=== PATIENT | male | born 1960 | race Caucasian/White ===

== ENCOUNTER 2018-08-14 04:39 | Inpatient (IN) | payer MEDICAID ==
[~2018-08-14] VITALS: Ht 188 cm; Wt 120.0 kg
[2018-08-14] MEDS ORDERED: morphine 4 MG/ML inj SYRINge IV ONE (04:50)
[2018-08-14] MEDS ORDERED: ondansetron/PF 4mg/2ml inj IV ONE (04:50)
[2018-08-14] MEDS ORDERED: ondansetron/PF 4mg/2ml inj IV PRN (05:50)
[2018-08-14] MEDS ORDERED: ASPI-1265 PO (06:03)
[2018-08-14] MEDS ORDERED: TICA60TA (06:03)
[2018-08-14] MEDS ORDERED: METO1TAB11 PO (06:03)
[2018-08-14] MEDS ORDERED: ATOR10TA PO (06:03)
[2018-08-14] MEDS: normal saline 1000ml 1,000 ML IV SCH ×2 (06:10→17:28)
[2018-08-14] MEDS: atorvastatin 10mg tablet PO SCH (08:00)
[2018-08-14] MEDS: morphine 4 MG/ML inj SYRINge IV PRN ×6 (08:22→22:37)
[2018-08-14 08:38] LABS: BASOPHILS % (AUTO) 0.4 % (0-1); EOSINOPHILS % (AUTO) 0.5 % (0-6); HEMATOCRIT 39.2 % (42.0-52.0); HEMOGLOBIN 13.1 g/dl (14.0-17.9); LYMPHOCYTES # (AUTO) 1.6 X10'3 (1.1-4.8); LYMPHOCYTES % (AUTO) 14.8 % (21-51); MEAN CORPUSCULAR HEMOGLOBIN 28.4 PG (27.0-31.0); MEAN CORPUSCULAR HGB CONC 33.4 g/dL (33.0-36.5); MEAN CORPUSCULAR VOLUME 85.2 FL (78-98); MEAN PLATELET VOLUME 8.6 FL (7.4-10.4); MONOCYTES # (AUTO) 0.8 X10'3 (0-0.9); MONOCYTES % (AUTO) 7.2 % (2-12); NEUTROPHILS # (AUTO) 8.4 X10'3 (1.8-7.7); NEUTROPHILS % (AUTO) 77.1 % (42-75); PLATELET COUNT 171 X10'3 (140-440); RED CELL DISTRIBUTION WIDTH 13.3 % (11.5-14.5); WHITE BLOOD COUNT 10.9 X10'3 (4.5-11.0)
[2018-08-14 08:45] LABS: PARTIAL THROMBOPLASTIN TIME 26 SECONDS (22-32); PROTHROMBIN TIME 10.4 SECONDS (9.0-12.0)
[2018-08-14 08:54] LABS: ALANINE AMINOTRANSFERASE 30 U/L (12-78); ALBUMIN 3.5 G/DL (3.4-5.0); ALBUMIN/GLOBULIN RATIO 1.2 (1.1-1.5); ALKALINE PHOSPHATASE 72 IU/L (46-116); ANION GAP 10 (8-16); ASPARTATE AMINO TRANSFERASE 22 U/L (10-37); BILIRUBIN,TOTAL 1.4 MG/DL (0.1-1.0); BLOOD UREA NITROGEN 11 MG/DL (7-18); BUN/CREATININE RATIO 17.5 (5.4-32.0); CALCIUM 8.1 MG/DL (8.5-10.1); CHLORIDE 107 MMOL/L (99-107); CREATININE 0.63 MG/DL (0.60-1.10); GLUCOSE 121 MG/DL (70-104); SODIUM 140 MMOL/L (135-145); TOTAL PROTEIN 6.5 G/DL (6.4-8.2); eGFR > 90 ML/MIN
--- NOTE | 2018-08-14 09:15 | NUR ---
Patient in room ORTHO 4018. I have received report from ROBER CEJA and had the opportunity to ask questions and assume patient care.
[2018-08-14 09:30] VITALS: BP 143/75
[2018-08-14] MEDS: aspirin 81mg tab.chew PO SCH (09:30)
[2018-08-14] MEDS: metoprolol succinate 25mg (24-HOUR) SR. Tablet PO SCH (09:54)
--- NOTE | 2018-08-14 11:24 | NUR ---
SHRAVAN [id number] RE: SILVIA [facility] DR COBSY SAID NPO AFTER MIDNIGHT POSSIBLE SURGERY TOMORROW.
[2018-08-14] MEDS: HYDROcodone/acetaminophen 10/325mg tab PO PRN (17:28)
[2018-08-14 18:00] VITALS: BP 133/84
--- NOTE | 2018-08-14 18:10 | NUR ---
Problems reprioritized. Patient report given, questions answered & plan of care reviewed with SUMEET CEJA.
--- NOTE | 2018-08-14 18:15 | NUR ---
Patient in room ORTHO 4018. I have received report from MARCIAL Moreau and had the opportunity to ask questions and assume patient care.
[2018-08-14] MEDS: docusate sod 100mg capsule PO SCH (19:31)
[2018-08-14 22:00] VITALS: BP 145/87
[2018-08-15] VITALS (18 sets, daily range): BP systolic 127–164; BP diastolic 76–96
[2018-08-15] MEDS: morphine 4 MG/ML inj SYRINge IV PRN ×5 (01:58→11:11)
[2018-08-15 06:15] LABS: BASOPHILS % (AUTO) 0.3 % (0-1); EOSINOPHILS # (AUTO) 0.3 X10'3 (0-0.9); EOSINOPHILS % (AUTO) 3.7 % (0-6); HEMATOCRIT 37.3 % (42.0-52.0); HEMOGLOBIN 12.8 g/dl (14.0-17.9); LYMPHOCYTES # (AUTO) 1.7 X10'3 (1.1-4.8); LYMPHOCYTES % (AUTO) 19.6 % (21-51); MEAN CORPUSCULAR HEMOGLOBIN 29.2 PG (27.0-31.0); MEAN CORPUSCULAR HGB CONC 34.2 g/dL (33.0-36.5); MEAN CORPUSCULAR VOLUME 85.4 FL (78-98); MEAN PLATELET VOLUME 8.9 FL (7.4-10.4); MONOCYTES # (AUTO) 0.8 X10'3 (0-0.9); MONOCYTES % (AUTO) 8.9 % (2-12); NEUTROPHILS # (AUTO) 5.8 X10'3 (1.8-7.7); NEUTROPHILS % (AUTO) 67.5 % (42-75); PLATELET COUNT 144 X10'3 (140-440); RED BLOOD COUNT 4.37 X10'6 (4.70-6.10); RED CELL DISTRIBUTION WIDTH 13.4 % (11.5-14.5); WHITE BLOOD COUNT 8.5 X10'3 (4.5-11.0)
--- NOTE | 2018-08-15 06:31 | NUR ---
Problems reprioritized. Patient report given, questions answered & plan of care reviewed with Malina.
[2018-08-15 06:48] LABS: ALANINE AMINOTRANSFERASE 24 U/L (12-78); ALBUMIN 3.2 G/DL (3.4-5.0); ALKALINE PHOSPHATASE 68 IU/L (46-116); ANION GAP 9 (8-16); ASPARTATE AMINO TRANSFERASE 18 U/L (10-37); BLOOD UREA NITROGEN 12 MG/DL (7-18); BUN/CREATININE RATIO 16.9 (5.4-32.0); CALCIUM 8.1 MG/DL (8.5-10.1); CHLORIDE 108 MMOL/L (99-107); CREATININE 0.71 MG/DL (0.60-1.10); GLUCOSE 151 MG/DL (70-104); POTASSIUM 3.6 MMOL/L (3.5-5.1); SODIUM 141 MMOL/L (135-145); TOTAL CARBON DIOXIDE 24.5 MMOL/L (24-32); TOTAL PROTEIN 6.3 G/DL (6.4-8.2); eGFR > 90 ML/MIN
[2018-08-15] MEDS: normal saline 1000ml 1,000 ML IV SCH ×2 (06:56→20:27)
[2018-08-15] MEDS: metoprolol succinate 25mg (24-HOUR) SR. Tablet PO SCH (08:00)
[2018-08-15] MEDS: atorvastatin 10mg tablet PO SCH (08:00)
[2018-08-15] MEDS: aspirin 81mg tab.chew PO SCH (08:00)
[2018-08-15] MEDS: docusate sod 100mg capsule PO SCH ×2 (08:00→20:26)
[2018-08-15] MEDS: ceFAZolin 1GM/D5W- ADD-VANTAGE 50 ML IV SCH ×3 (08:20→23:57)
--- NOTE | 2018-08-15 09:44 | NUR ---
Dr. Simons in to see patient.
--- NOTE | 2018-08-15 11:52 | NUR ---
Dr. Roberto in to see patient, patient picked up to go to OR.
[2018-08-15] MEDS ORDERED: tetracaine 1% (10mg/ml) pres. free inj. ONE (12:03)
--- NOTE | 2018-08-15 12:05 | NUR ---
Page to Dr. Simons MESSAGE: [id number] Art[address] Palumbo for post op. 24hrs, pt had a [facility], with stent placement 3 months ago Malina [id number]
[2018-08-15] MEDS ORDERED: MIDAZolam 5mg/5ml vial ONE (12:07)
[2018-08-15] MEDS ORDERED: morphine /PF 1mg/ml 10ml inj. ONE (12:07)
[2018-08-15] MEDS ORDERED: fentaNYL/PF 50MCG/1 ML 2ML syringe ONE (12:07)
[2018-08-15] MEDS ORDERED: ceFAZolin 1000mg inj ONE ×2 (12:31)
[2018-08-15] MEDS ORDERED: ringers solution, lacted 1,000 ML IV SCH (12:58)
[2018-08-15] MEDS ORDERED: naloxone 2mg/2ml inj 2 MG in normal saline 500ml IV soln 500 ML IV PRN (12:59)
[2018-08-15] MEDS ORDERED: meperidine/PF 25mg/ml syringe IV PRN ×3 (13:00)
[2018-08-15] MEDS ORDERED: diphenhydrAMINE 50 mg/ml inj IV PRN (13:00)
[2018-08-15] MEDS ORDERED: ondansetron/PF 4mg/2ml inj IV PRN ×2 (13:00)
[2018-08-15] MEDS ORDERED: morphine 4 MG/ML inj SYRINge IV PRN ×2 (13:00)
[2018-08-15] MEDS ORDERED: proCHLORperazine 10 MG/2 ml inj IV PRN (13:00)
--- NOTE | 2018-08-15 13:22 | NUR ---
Received from OR via ORTHO BED WITH [facility] , accompanied by Anesthesiologist FRANSISCA and report given by Anesthesiolgist. PATIENT WITH RIGHT LE IN ANAM BANDAGE FROM LOW THIGH TO TOE BOX.+ DORSALIS PEDIS PRESENT. 22G PIV IN LEFT UE RUNNING LR AT 100. DENIES PAIN. SENSATION AT XYPOHID AT THIS TIME FROM SPINAL ANESTHESIA AND NARCOTICS. VSS AT THIS TIME. Addendum: 08/15/18 at 1349 by Doroteo Anne RN, RN Amended: Links added.
[2018-08-15] MEDS ORDERED: bisacodyl 10mg suppository rectal RC PRN (13:25)
[2018-08-15] MEDS ORDERED: diphenhydrAMINE 25mg capsule PO PRN ×2 (13:25)
[2018-08-15] MEDS ORDERED: acetaminophen 325mg tablet PO PRN (13:25)
[2018-08-15] MEDS ORDERED: magnesium hydroxide 30ml (MOM) UD suspension PO PRN (13:25)
--- NOTE | 2018-08-15 14:00 | NUR ---
Received report from Doroteo CEJA, VSS, BED Low, patient sensation at Xiphoid.
--- NOTE | 2018-08-15 14:11 | NUR ---
ALL CRITERIA FOR TRANSFER TO THE FLOOR HAS BEEN ACHIEVED. VSS. BED LOW, CALL LIGHT AND VS. SET IN PLACE. RN PRESENT TO ACCEPT CARE. PATIENT RESTING COMFORTABLY IN BED. BELONGINGS SENT WITH PATIENT. DRESSINGS CDI. REPORT GIVEN TO LORI CEJA, JOSEFINA. SPINAL LEVEL STILL AT T5 SENSATION LEVEL, MARCIAL SANDOVAL AWARE OF THIS. Addendum: 08/15/18 at 1419 by Doroteo Anne RN, RN Amended: Links added.
--- NOTE | 2018-08-15 16:11 | NUR ---
Patient sensation at waist. easy to arouse.
--- NOTE | 2018-08-15 18:37 | NUR ---
Problems reprioritized. Patient report given, questions answered & plan of care reviewed with Kaya Hart
--- NOTE | 2018-08-15 18:44 | NUR ---
PATIENT REPORT RECEIVED FROM LORI CEJA.
[2018-08-15] MEDS: lactobacillus rhamnosus 10,000 MMU CELLS/CAPSULE PO SCH (20:25)
[2018-08-15] MEDS: sennosides 8.6mg tablet PO SCH (20:26)
[2018-08-16 02:00] VITALS: BP 164/93
[2018-08-16] MEDS: HYDROcodone/acetaminophen 10/325mg tab PO PRN ×4 (04:52→20:50)
[2018-08-16] MEDS: normal saline 1000ml 1,000 ML IV SCH (05:36)
--- NOTE | 2018-08-16 06:20 | NUR ---
PATIENT REPORT GIVEN TO LORI CEJA.
[2018-08-16 06:35] VITALS: BP 165/90
[2018-08-16 06:39] LABS: BASOPHILS % (AUTO) 0.4 % (0-1); EOSINOPHILS # (AUTO) 0.3 X10'3 (0-0.9); EOSINOPHILS % (AUTO) 3.6 % (0-6); HEMATOCRIT 33.2 % (42.0-52.0); HEMOGLOBIN 11.4 g/dl (14.0-17.9); LYMPHOCYTES # (AUTO) 1.8 X10'3 (1.1-4.8); LYMPHOCYTES % (AUTO) 20.2 % (21-51); MEAN CORPUSCULAR HEMOGLOBIN 29.1 PG (27.0-31.0); MEAN CORPUSCULAR HGB CONC 34.4 g/dL (33.0-36.5); MEAN CORPUSCULAR VOLUME 84.8 FL (78-98); MEAN PLATELET VOLUME 8.6 FL (7.4-10.4); MONOCYTES # (AUTO) 1.2 X10'3 (0-0.9); MONOCYTES % (AUTO) 12.8 % (2-12); NEUTROPHILS # (AUTO) 5.8 X10'3 (1.8-7.7); PLATELET COUNT 137 X10'3 (140-440); RED BLOOD COUNT 3.91 X10'6 (4.70-6.10); RED CELL DISTRIBUTION WIDTH 13.8 % (11.5-14.5); WHITE BLOOD COUNT 9.2 X10'3 (4.5-11.0)
[2018-08-16 06:53] LABS: ALANINE AMINOTRANSFERASE 17 U/L (12-78); ALBUMIN 2.9 G/DL (3.4-5.0); ALBUMIN/GLOBULIN RATIO 0.9 (1.1-1.5); ALKALINE PHOSPHATASE 62 IU/L (46-116); ANION GAP 8 (8-16); ASPARTATE AMINO TRANSFERASE 16 U/L (10-37); BILIRUBIN,TOTAL 1.3 MG/DL (0.1-1.0); BLOOD UREA NITROGEN 11 MG/DL (7-18); CHLORIDE 104 MMOL/L (99-107); GLUCOSE 105 MG/DL (70-104); POTASSIUM 3.4 MMOL/L (3.5-5.1); SODIUM 139 MMOL/L (135-145); eGFR > 90 ML/MIN
[2018-08-16] MEDS: ceFAZolin 1GM/D5W- ADD-VANTAGE 50 ML IV SCH ×2 (07:38→16:10)
[2018-08-16] MEDS: enoxaparin 40mg/0.4ml syringe SQ SCH (07:43)
[2018-08-16] MEDS: aspirin 81mg tab.chew PO SCH (07:43)
[2018-08-16] MEDS: atorvastatin 10mg tablet PO SCH (07:48)
[2018-08-16] MEDS: docusate sod 100mg capsule PO SCH ×2 (07:48→20:49)
[2018-08-16] MEDS: lactobacillus rhamnosus 10,000 MMU CELLS/CAPSULE PO SCH ×2 (07:48→20:49)
[2018-08-16] MEDS: metoprolol succinate 25mg (24-HOUR) SR. Tablet PO SCH (07:52)
[2018-08-16 10:00] VITALS: BP 135/94
--- NOTE | 2018-08-16 10:42 | NUR ---
DR. MANTILLA INTO SEE PATIENT
[2018-08-16 11:18] VITALS: BP 135/94
[2018-08-16 18:00] VITALS: BP 134/73
--- NOTE | 2018-08-16 18:15 | NUR ---
Report received from Malina CEJA, assumed care of patient.
--- NOTE | 2018-08-16 18:22 | NUR ---
Problems reprioritized. Patient report given, questions answered & plan of care reviewed with Delaney CEJA.
[2018-08-16] MEDS: sennosides 8.6mg tablet PO SCH (20:50)
[2018-08-16 22:00] VITALS: BP 139/68
[2018-08-17] MEDS: HYDROcodone/acetaminophen 10/325mg tab PO PRN ×5 (01:00→23:05)
[2018-08-17 05:00] VITALS: BP 128/78
[2018-08-17 06:10] LABS: BASOPHILS % (AUTO) 0.5 % (0-1); EOSINOPHILS # (AUTO) 0.3 X10'3 (0-0.9); EOSINOPHILS % (AUTO) 4.1 % (0-6); HEMATOCRIT 32.5 % (42.0-52.0); HEMOGLOBIN 11.1 g/dl (14.0-17.9); LYMPHOCYTES # (AUTO) 1.9 X10'3 (1.1-4.8); LYMPHOCYTES % (AUTO) 27.1 % (21-51); MEAN CORPUSCULAR HGB CONC 34.2 g/dL (33.0-36.5); MEAN CORPUSCULAR VOLUME 84.8 FL (78-98); MEAN PLATELET VOLUME 8.8 FL (7.4-10.4); MONOCYTES # (AUTO) 0.8 X10'3 (0-0.9); MONOCYTES % (AUTO) 11.9 % (2-12); NEUTROPHILS % (AUTO) 56.4 % (42-75); PLATELET COUNT 133 X10'3 (140-440); RED BLOOD COUNT 3.83 X10'6 (4.70-6.10); RED CELL DISTRIBUTION WIDTH 12.9 % (11.5-14.5); WHITE BLOOD COUNT 7.1 X10'3 (4.5-11.0)
[2018-08-17 06:19] LABS: ALANINE AMINOTRANSFERASE 18 U/L (12-78); ALBUMIN 2.8 G/DL (3.4-5.0); ALBUMIN/GLOBULIN RATIO 0.8 (1.1-1.5); ALKALINE PHOSPHATASE 57 IU/L (46-116); ANION GAP 6 (8-16); ASPARTATE AMINO TRANSFERASE 21 U/L (10-37); BILIRUBIN,TOTAL 0.8 MG/DL (0.1-1.0); BLOOD UREA NITROGEN 11 MG/DL (7-18); BUN/CREATININE RATIO 19.3 (5.4-32.0); CALCIUM 8.2 MG/DL (8.5-10.1); CHLORIDE 108 MMOL/L (99-107); CREATININE 0.57 MG/DL (0.60-1.10); GLUCOSE 106 MG/DL (70-104); POTASSIUM 3.4 MMOL/L (3.5-5.1); SODIUM 144 MMOL/L (135-145); TOTAL PROTEIN 6.1 G/DL (6.4-8.2); eGFR > 90 ML/MIN
--- NOTE | 2018-08-17 06:28 | NUR ---
Report given to Malina CEJA.
[2018-08-17 08:00] VITALS: BP 138/78
[2018-08-17] MEDS: lactobacillus rhamnosus 10,000 MMU CELLS/CAPSULE PO SCH ×2 (08:00→19:30)
[2018-08-17] MEDS: aspirin 81mg tab.chew PO SCH (08:19)
[2018-08-17] MEDS: docusate sod 100mg capsule PO SCH ×2 (08:19→19:30)
[2018-08-17] MEDS: atorvastatin 10mg tablet PO SCH (08:19)
[2018-08-17] MEDS: metoprolol succinate 25mg (24-HOUR) SR. Tablet PO SCH (08:19)
[2018-08-17] MEDS: enoxaparin 40mg/0.4ml syringe SQ SCH (08:35)
[2018-08-17 10:00] VITALS: BP 127/69
--- NOTE | 2018-08-17 12:40 | NUR ---
RN verbal consult RE: Pt food preferences since vegan on vegetarian diet. PT seen by CAROLYN and agrees to haroldo duenas w/ lunch, oatmealx2 w/ breakfasts, no dairy, fruit cup TIDWM, and side salad w/ american dressings BIDLD. CAROLYN d/w dietary for preferences. Addendum: 08/17/18 at [address] Amended: Links added.
[2018-08-17] MEDS ORDERED: magnesium Cl slow-release 64mg tablet PO PRN (14:20)
[2018-08-17] MEDS ORDERED: potassium Cl 20 mEq SR tablet PO PRN (14:20)
[2018-08-17] MEDS ORDERED: magnesium 4gm in 100ml NS 100 ML IV PRN (14:20)
[2018-08-17] MEDS ORDERED: potassium Cl 40MEQ/NS 500ml 500 ML IV PRN ×2 (14:20)
[2018-08-17] MEDS: pantoprazole 40mg Tablet.DR PO SCH (16:08)
--- NOTE | 2018-08-17 16:51 | NUR ---
Patient requested second pain pill.
[2018-08-17 18:00] VITALS: BP 128/87
--- NOTE | 2018-08-17 18:06 | NUR ---
Report to Delaney Matthews RN
[2018-08-17] MEDS: sennosides 8.6mg tablet PO SCH (19:30)
[2018-08-17 22:00] VITALS: BP 110/69
[2018-08-18] MEDS: potassium Cl 20 mEq SR tablet PO PRN ×2 (00:22→05:04)
[2018-08-18] MEDS: HYDROcodone/acetaminophen 10/325mg tab PO PRN ×6 (04:14→23:08)
[2018-08-18 06:00] VITALS: BP 125/68
[2018-08-18 06:28] LABS: ALANINE AMINOTRANSFERASE 21 U/L (12-78); ALBUMIN/GLOBULIN RATIO 0.9 (1.1-1.5); ALKALINE PHOSPHATASE 57 IU/L (46-116); ANION GAP 9 (8-16); ASPARTATE AMINO TRANSFERASE 22 U/L (10-37); BLOOD UREA NITROGEN 10 MG/DL (7-18); BUN/CREATININE RATIO 15.4 (5.4-32.0); CALCIUM 8.5 MG/DL (8.5-10.1); CHLORIDE 107 MMOL/L (99-107); CREATININE 0.65 MG/DL (0.60-1.10); GLUCOSE 100 MG/DL (70-104); MAGNESIUM 1.7 MG/DL (1.5-2.4); POTASSIUM 3.8 MMOL/L (3.5-5.1); SODIUM 144 MMOL/L (135-145); TOTAL CARBON DIOXIDE 28.4 MMOL/L (24-32); TOTAL PROTEIN 6.4 G/DL (6.4-8.2); eGFR > 90 ML/MIN
--- NOTE | 2018-08-18 06:30 | NUR ---
Problems reprioritized. Patient report given, questions answered & plan of care reviewed with MARCIAL Head.
--- NOTE | 2018-08-18 06:58 | NUR ---
Patient in room ORTHO 4018. I have received report from Delaney Matthews RN and had the opportunity to ask questions and assume patient care.
[2018-08-18] MEDS: pantoprazole 40mg Tablet.DR PO SCH (07:55)
[2018-08-18] MEDS: enoxaparin 40mg/0.4ml syringe SQ SCH (07:55)
[2018-08-18] MEDS: metoprolol succinate 25mg (24-HOUR) SR. Tablet PO SCH (07:56)
[2018-08-18] MEDS: atorvastatin 10mg tablet PO SCH (07:56)
[2018-08-18] MEDS: lactobacillus rhamnosus 10,000 MMU CELLS/CAPSULE PO SCH ×2 (07:56→20:21)
[2018-08-18] MEDS: docusate sod 100mg capsule PO SCH ×2 (07:56→20:21)
[2018-08-18] MEDS: aspirin 81mg tab.chew PO SCH (07:56)
[2018-08-18 10:00] VITALS: BP 109/65
--- NOTE | 2018-08-18 13:00 | NUR ---
Patient in room ORTHO 4018. I have received report from Sonido Polanco and had the opportunity to ask questions and assume patient care.
--- NOTE | 2018-08-18 14:15 | NUR ---
Initial: Pt admit w/ tibia/fibula fracture s/p fall on ice. Hx vegan after prior CA DX before he was "cured" per pt. Pt PO 75-100% vegetarian diet meeting needs. CAROLYN d/w RN for B12 supplement per MD approval given pt vegan hx; needs supplementation. LBM 08/17 on colace and senna post-op. Will continue to monitor. Rec: 1. continue vegetarian diet 2. B12 per MD given vegan hx 3. routine bowel care 4. wt per rx Addendum: 08/18/18 at [address] Amended: Links added.
[2018-08-18 18:00] VITALS: BP 122/73
--- NOTE | 2018-08-18 18:01 | NUR ---
Problems reprioritized. Patient report given, questions answered & plan of care reviewed with Delaney Matthews RN.
[2018-08-18] MEDS: sennosides 8.6mg tablet PO SCH (20:21)
[2018-08-18 22:00] VITALS: BP 136/56
[2018-08-19] MEDS: HYDROcodone/acetaminophen 10/325mg tab PO PRN ×3 (03:35→16:03)
[2018-08-19 06:00] VITALS: BP 142/74
--- NOTE | 2018-08-19 06:45 | NUR ---
Problems reprioritized. Patient report given, questions answered & plan of care reviewed with MARCIAL Head.
[2018-08-19 06:47] LABS: ALANINE AMINOTRANSFERASE 24 U/L (12-78); ALBUMIN/GLOBULIN RATIO 0.9 (1.1-1.5); ALKALINE PHOSPHATASE 64 IU/L (46-116); ANION GAP 8 (8-16); ASPARTATE AMINO TRANSFERASE 20 U/L (10-37); BILIRUBIN,TOTAL 0.9 MG/DL (0.1-1.0); BLOOD UREA NITROGEN 9 MG/DL (7-18); CALCIUM 8.5 MG/DL (8.5-10.1); CHLORIDE 103 MMOL/L (99-107); GLUCOSE 115 MG/DL (70-104); MAGNESIUM 1.9 MG/DL (1.5-2.4); POTASSIUM 3.8 MMOL/L (3.5-5.1); SODIUM 138 MMOL/L (135-145); TOTAL CARBON DIOXIDE 26.6 MMOL/L (24-32); TOTAL PROTEIN 6.5 G/DL (6.4-8.2); eGFR > 90 ML/MIN
--- NOTE | 2018-08-19 07:07 | NUR ---
Patient in room ORTHO 4018. I have received report from Delaney Matthews RN and had the opportunity to ask questions and assume patient care.
[2018-08-19] MEDS: enoxaparin 40mg/0.4ml syringe SQ SCH (08:29)
[2018-08-19] MEDS: aspirin 81mg tab.chew PO SCH (08:32)
[2018-08-19] MEDS: docusate sod 100mg capsule PO SCH (08:32)
[2018-08-19] MEDS: lactobacillus rhamnosus 10,000 MMU CELLS/CAPSULE PO SCH (08:32)
[2018-08-19] MEDS: metoprolol succinate 25mg (24-HOUR) SR. Tablet PO SCH (08:32)
[2018-08-19] MEDS: atorvastatin 10mg tablet PO SCH (08:33)
[2018-08-19] MEDS: pantoprazole 40mg Tablet.DR PO SCH (08:33)
[2018-08-19 10:00] VITALS: BP 130/84
--- NOTE | 2018-08-19 12:00 | NUR ---
Patient in room ORTHO 4018. I have received report from Sita Monsalve [employer] and had the opportunity to ask questions and assume patient care.
--- NOTE | 2018-08-19 16:19 | NUR ---
called report to Jeannie CEJA at [facility], patient was transported by a medivan service, alert and appropriate at time of discharge
== END 2018-08-19 16:05 | DRG 313 ==
LOC: ER 04:41 → ED HOLD 05:47 → ORTHO 4S 09:29
PROVIDERS: ADMIT Internal Medicine; ATTEND Family Medicine
PROC: 0QHG06Z Insertion of Intramedullary Internal Fixation Device into Right Tibia, Open Approach (ICD-10-PCS; principal; 2018-08-15 11:56)
DX: S82.201A Unspecified fracture of shaft of right tibia, initial encounter for closed fracture (principal); D62 Acute posthemorrhagic anemia; E78.5 Hyperlipidemia, unspecified; S82.401A Unspecified fracture of shaft of right fibula, initial encounter for closed fracture; I10 Essential (primary) hypertension; Z60.2 Problems related to living alone; W00.0XXA Fall on same level due to ice and snow, initial encounter; I25.10 Atherosclerotic heart disease of native coronary artery without angina pectoris; I25.2 Old myocardial infarction; Z82.49 Family history of ischemic heart disease and other diseases of the circulatory system; Z98.61 Coronary angioplasty status; Y93.89 Activity, other specified; Y92.89 Other specified places as the place of occurrence of the external cause; Y99.8 Other external cause status; Z79.899 Other long term (current) drug therapy; Z79.82 Long term (current) use of aspirin
CPT/HCPCS: 36415; 73590; 76000; 80053; 83735; 85025; 85610; 85730; 86885; 86900; 86901; 87070; 93005; 97110; 97116; 97161; 97530; 99285; A6222; A6449; A7000; C1713; C1758; G0378; J0690; J1650; J2250; J2270; J2274; J2405; J3010; J7030; J7120